=== PATIENT | male | born 1970 | race Caucasian/White ===

== ENCOUNTER 2020-08-05 16:52 | Observation (INO) | payer OTHER ==
[~2020-08-05] VITALS: Ht 175.3 cm; Wt 135.2 kg
[2020-08-05 18:15] LABS: HEMOGLOBIN 16.3 gm/dl (14.0-17.5); RED BLOOD COUNT 5.56 M/UL (4.20-5.50); WHITE BLOOD COUNT 8.9 K/UL (4.5-11.0)
[2020-08-05 18:29] LABS: BUN/CREATININE RATIO 14 (0-10)
[2020-08-06] MEDS ORDERED: CLARITIN10 MG PO (02:26)
[2020-08-06] MEDS ORDERED: NORVASC5 MG PO (02:27)
[2020-08-06] MEDS ORDERED: COREG12.5 MG PO (02:28)
[2020-08-06] MEDS ORDERED: COZAAR100 MG PO (02:30)
[2020-08-06] MEDS ORDERED: NAPROXEN500 MG PO (02:30)
[2020-08-06] MEDS ORDERED: TRULICITY0.75 MG/0. INJ (02:33)
[2020-08-06] MEDS ORDERED: ZYLOPRIM100 MG PO (02:35)
[2020-08-06] MEDS ORDERED: CENTRUM SILVER1 EAC1 PO (02:36)
[2020-08-06] MEDS ORDERED: LOW DOSE ASPIRI81 MG PO (02:37)
[2020-08-06] MEDS ORDERED: PROTONIX 40 MG40 M1 PO (02:38)
[2020-08-06] MEDS ORDERED: GLUCOPHAGE 500500 MG PO (02:40)
[2020-08-06] MEDS ORDERED: METFORMIN HCL1000 MG PO (02:41)
[2020-08-06] MEDS ORDERED: JARDIANCE25 MG PO (02:42)
[2020-08-07 03:28] LABS: HEMOGLOBIN 15.9 gm/dl (14.0-17.5); RED BLOOD COUNT 5.56 M/UL (4.20-5.50); WHITE BLOOD COUNT 8.6 K/UL (4.5-11.0)
[2020-08-07 04:42] LABS: BUN/CREATININE RATIO 19 (0-10)
== END 2020-08-07 18:35 | disposition other institution (70) ==
LOC: ER1 16:52 → MED SURG 4 19:21 → CDU 19:21 → MED SURG 4 08-06 01:10
PROVIDERS: Preventive Medicine Occupational Medicine; ADMIT Family Medicine
DX: I25.118 Atherosclerotic heart disease of native coronary artery with other forms of angina pectoris (principal); I10 Essential (primary) hypertension; E78.5 Hyperlipidemia, unspecified; E11.9 Type 2 diabetes mellitus without complications; E66.9 Obesity, unspecified; M10.9 Gout, unspecified; I45.19 Other right bundle-branch block; Z82.49 Family history of ischemic heart disease and other diseases of the circulatory system; Z90.49 Acquired absence of other specified parts of digestive tract; Z95.5 Presence of coronary angioplasty implant and graft; Z88.5 Allergy status to narcotic agent; Z79.82 Long term (current) use of aspirin; Z79.899 Other long term (current) drug therapy; Z20.822 Contact with and (suspected) exposure to COVID-19
CPT/HCPCS: ECHO; 36415; 71045; 78452; 80048; 80053; 80061; 81001; 82550; 82553; 82962; 83036; 83690; 83874; 83880; 84484; 85025; 85652; 86140; 87086; 93005; 93017; 93306; 96374; 99152; 99285; A9502; C1769; G0378; J1644; J2250; J2270; J2785; J3010; J7030; Q9967; U0002